=== PATIENT | female | born 1970 | race Native Hawaiian/Other Pacific Islander ===

== ENCOUNTER 2016-11-27 20:48 | Emergency (ER) | payer OTHER ==
[~2016-11-27] VITALS: Ht 157.5 cm; Wt 84.4 kg
[2016-11-27 21:06] VITALS: BP 137/78; TEMP 98.6
== END 2016-11-27 21:38 | disposition home or self-care (01) ==
LOC: ED 20:48
DX: L55.9 Sunburn, unspecified (principal)
CPT/HCPCS: 99281

== ENCOUNTER 2017-08-23 05:23 | Emergency (ER) | payer OTHER ==
[~2017-08-23] VITALS: Ht 157.5 cm; Wt 86.2 kg
[2017-08-23 06:40] LABS: PLATELET COUNT 287 K/uL (152-353)
[2017-08-23 06:49] LABS: POTASSIUM 4.2 mmol/L (3.6-5.2)
[2017-08-23 07:08] VITALS: BP 145/74; TEMP 97.2
== END 2017-08-23 07:08 | disposition home or self-care (01) ==
LOC: ED 05:23
PROVIDERS: Specialist
DX: J20.9 Acute bronchitis, unspecified (principal); B96.89 Other specified bacterial agents as the cause of diseases classified elsewhere
CPT/HCPCS: 80048; 85027; 99283

== ENCOUNTER 2017-11-07 10:45 | Outpatient (CLI) | payer OTHER ==
[~2017-11-07] VITALS: Ht 30.5 cm; Wt 0.5 kg
== END 2017-11-07 19:12 | disposition home or self-care (01) ==
LOC: INF 10:45
DX: N30.01 Acute cystitis with hematuria (principal)
CPT/HCPCS: 96372; J0696

== ENCOUNTER 2017-11-09 09:49 | Outpatient (CLI) | payer OTHER | END 2017-11-09 19:43 | disposition home or self-care (01) | LOC: INF 09:49 | DX: N30.01 Acute cystitis with hematuria (principal) | CPT/HCPCS: 96372; J0696 ==

== ENCOUNTER 2017-11-11 07:38 | Outpatient (CLI) | payer OTHER | END 2017-11-11 19:00 | disposition home or self-care (01) | LOC: INF 07:38 | DX: N30.01 Acute cystitis with hematuria (principal) | CPT/HCPCS: 96372; J0696 ==

== ENCOUNTER 2019-04-13 23:02 | Emergency (ER) | payer OTHER ==
[~2019-04-13] VITALS: Ht 157.5 cm; Wt 86.2 kg
[2019-04-14 00:20] VITALS: BP 171/92; TEMP 97.3
== END 2019-04-14 00:20 | disposition home or self-care (01) ==
LOC: ED 23:02
DX: M79.672 Pain in left foot (principal)
CPT/HCPCS: 99282

== ENCOUNTER 2019-08-25 15:07 | Outpatient (CLI) | payer OTHER | END 2019-08-25 22:57 | disposition home or self-care (01) | LOC: RAD 15:07 | DX: R07.89 Other chest pain (principal) | CPT/HCPCS: 93005 ==

== ENCOUNTER 2019-08-26 08:37 | Outpatient (CLI) | payer OTHER | END 2019-08-26 22:35 | disposition home or self-care (01) | LOC: LAB 08:37 | DX: R07.89 Other chest pain (principal) | CPT/HCPCS: 82550; 84484 ==

== ENCOUNTER 2019-08-28 09:59 | Outpatient (CLI) | payer OTHER | END 2019-08-28 19:32 | disposition home or self-care (01) | LOC: RAD 09:59 | DX: J90 Pleural effusion, not elsewhere classified (principal) ==

== ENCOUNTER 2019-09-01 10:25 | Outpatient (CLI) | payer OTHER | END 2019-09-01 21:37 | disposition home or self-care (01) | LOC: RAD 10:25 | DX: J90 Pleural effusion, not elsewhere classified (principal) ==

== ENCOUNTER 2020-01-26 09:32 | Emergency (ER) | payer OTHER ==
[~2020-01-26] VITALS: Ht 157.5 cm; Wt 86.2 kg
[2020-01-26 09:35] VITALS: TEMP 98.7
[2020-01-26 10:12] LABS: PLATELET COUNT 276 K/uL (152-353)
[2020-01-26 10:24] LABS: POTASSIUM 4.1 mmol/L (3.6-5.2); SODIUM 136 mmol/L (136-145)
[2020-01-26 13:07] VITALS: BP 142/87
== END 2020-01-26 13:07 | disposition home or self-care (01) ==
LOC: ED 09:32
PROVIDERS: Emergency Medicine
DX: R07.89 Other chest pain (principal)
CPT/HCPCS: 80053; 82550; 82553; 84484; 85027; 85379; 93005; 99284

== ENCOUNTER 2020-08-02 08:08 | Outpatient (CLI) | payer OTHER | END 2020-08-02 22:36 | disposition home or self-care (01) | LOC: INF 08:08 | PROVIDERS: ATTEND Internal Medicine | DX: Z23 Encounter for immunization (principal) | CPT/HCPCS: 96372 ==

== ENCOUNTER 2020-08-24 08:04 | Outpatient (CLI) | payer OTHER | END 2020-08-24 19:32 | disposition home or self-care (01) | LOC: INF 08:04 | PROVIDERS: ATTEND Internal Medicine | DX: Z23 Encounter for immunization (principal) | CPT/HCPCS: 96372 ==

== ENCOUNTER 2021-02-06 11:05 | Outpatient (CLI) | payer OTHER ==
[2021-02-06 13:48] LABS: SODIUM 137 mmol/L (136-145)
== END 2021-02-06 19:27 | disposition home or self-care (01) ==
LOC: RESP 11:05 → LABW 11:05 → RAD 11:05 → LABW 19:27
PROVIDERS: ATTEND Nurse Practitioner Family
DX: Z20.828 Contact with and (suspected) exposure to other viral communicable diseases (principal)
CPT/HCPCS: 36415; 80053; 82550; 82553; 82728; 84484; 85379; 86140; 93005

== ENCOUNTER 2022-12-23 11:03 | Outpatient (CLI) | payer OTHER ==
[2022-12-23 11:23] LABS: POTASSIUM 3.6 mmol/L (3.6-5.2)
== END 2022-12-23 20:22 | disposition home or self-care (01) ==
LOC: LABW 11:03
PROVIDERS: ATTEND Nurse Practitioner Family
DX: U07.1 COVID-19 (principal)
CPT/HCPCS: 36415; 80053